=== PATIENT | female | born 1995 | race Caucasian/White ===

== ENCOUNTER 2017-07-02 10:45 | Inpatient (IN) | payer BC, OTHER ==
[~2017-07-02] VITALS: Ht 160 cm; Wt 60.3 kg
--- NOTE | 2017-07-08 01:30 | NUR ---
INTAKE ASSESSMENT PT ASSESSED IN INTAKE,PT IS A/O X 3,AMBULATES WITH A STEADY GAIT,V/S ARE STABLE.NO CO PAIN OR S/S OF ACUTE DISTRESS NOTED.PT IS IN A STABLE CONDITION TO PROCEED TO THE [facility].
[2017-07-08] MEDS ORDERED: ONDANSETRON 4 MG/2 ML VIAL IM PRN (02:00)
[2017-07-08] MEDS ORDERED: IBUPROFEN 400 MG TABLET PO PRN (02:00)
[2017-07-08] MEDS ORDERED: MAG HYDROX/AL HYDROX/SIMETH 30 ML LIQUID UDC PO PRN (02:00)
[2017-07-08] MEDS ORDERED: DICYCLOMINE HCL 20 MG TABLET PO PRN (02:00)
[2017-07-08] MEDS ORDERED: MIRALAX 17 GM POWD.PACK PO PRN (02:00)
[2017-07-08] MEDS ORDERED: ONDANSETRON ODT 4 MG TAB.RAPDIS SL PRN (02:00)
[2017-07-08] MEDS ORDERED: LOPERAMIDE HCL 2 MG CAPSULE PO PRN ×2 (02:00)
[2017-07-08] MEDS ORDERED: CLONIDINE HCL 0.1 MG TABLET PO PRN (02:00)
[2017-07-08] MEDS ORDERED: LORAZEPAM 1 MG TABLET PO PRN ×2 (02:00)
[2017-07-08] MEDS ORDERED: ACETAMINOPHEN 325 MG TABLET PO PRN (02:00)
[2017-07-08] MEDS ORDERED: MAGNESIUM HYDROXIDE 30 ML LIQUID UDC PO PRN (02:00)
[2017-07-08] MEDS ORDERED: LORAZEPAM 2 MG/1 ML VIAL IM PRN (02:00)
[2017-07-08] MEDS ORDERED: diphenhydrAMINE 50 MG CAPSULE PO PRN (02:00)
[2017-07-08] MEDS ORDERED: HYDR-3026 PO (02:04)
[2017-07-08] MEDS ORDERED: DOXE10CA2 PO (02:04)
[2017-07-08] MEDS ORDERED: NORE1PAT7 TD (02:04)
[2017-07-08] MEDS ORDERED: MELA3TAB PO (02:04)
[2017-07-08] MEDS ORDERED: NEOM14CR4 TP (02:04)
[2017-07-08] MEDS ORDERED: VITS42.53 TP (02:04)
[2017-07-08] MEDS ORDERED: BUPR-51 PO (02:04)
[2017-07-08 02:30] LABS: *URINE HCG, QUAL NEGATIVE (NEGATIVE)
[2017-07-08 02:36] LABS: *AMPHETAMINE, URINE POSITIVE (NEGATIVE); *BARBITURATE, URINE NEGATIVE (NEGATIVE); *CANNABINOID, URINE POSITIVE (NEGATIVE); *COCCAINE, URINE POSITIVE (NEGATIVE); *OPIATE, URINE NEGATIVE (NEGATIVE); *PHENCYCLIDINE SCREEN,URINE NEGATIVE (NEGATIVE)
--- NOTE | 2017-07-08 03:00 | NUR ---
ADMISSION NOTE HT=5 FEET,3 INCHES. WT= 133 POUNDS. B/P=98/57,T=97.4,P=74,R=16,02 SAT=97%. CIWA=4. Admitting 21 y/o female to [facility] for Benzo ( Xanax) dependency.Pt also reports using Meth,cocaine and marijuana.Pt started taking Xanax for anxiety disorder when she was 19 years old.Pt has a PMH of anxiety,depression,suicide attempt x 1 by overdosing on medications and seizures due to benzo withdrawals.Pt reports having a seizure 2 months ago.Placed on fall and seizure precautions.Pt reports having sinus surgery and has hx of head injury requiring sutures.Pt denies having any suicidal thoughts at this time.Pt is A/O X 3;she is allergic to Sulfa,eugene and mangoes.Placed on a regular diet and full code status.Skin is intact,warm and dry to touch.Pt has a superficial scratch on her chest and an old healing scab on her left knee.Respirations are even and non labored;abdomen is soft with bowel sounds present x 4.No c/o N/V/D noted.Pt oriented to room and unit,care plan and safety checks initiated.Educated on HEP C,SMOKING CESSATION,FALL RISK,SEIZURE PRECAUTIONS AND SUBSTANCE ABUSE.All safety measures in place per hospital policy,call light within reach.MD notified of admission.Pt's PCP is Dr.Tobie Bailey.Pt lives in [place], [place] with her parents. DRUG USE HX 1) XANAX-PT HAS BEEN TAKING 14 MGS OF XANAX SINCE THE AGE OF 19 YEARS. LAST TAKEN ON 07/06/17. 2) METH- PT STARTED USING METH 2 MONTHS AGO. LAST USED ON 07/07/17 AMT USED- 20 DOLLARS WORTH. 3) COCAINE- PT USES COCAINE EVERY OTHER DAY. LAST USED ON 07/06/17 QUANTITY-PT IS UNABLE TOP STATE. 4) MARIJUANA-PT HAS BEEN SMOKING 3 GRAMS OF MARIJUANA DAILY SINCE SHE WAS 17 YEARS OLD. LAST USED-07/06/17. DETOX HX PT HAS BEEN TO [facility] X 2. LAST TIME WAS FROM APRIL 2017 TO MAY 2017,WHERE SHE STAYED FOR 30 DAYS. SHE WAS SOBER FOR 20 DAYS AFTER DISCHARGE THEN RELAPSED. HER LONGEST SOBER PERIOD WAS FOR 50 DAYS FROM APRIL 2017 TO MAY 2017.
[2017-07-08 03:31] LABS: ALANINE AMINOTRANSFERASE 21 U/L (14-59); ALKALINE PHOSPHATASE 60 U/L (50-136); AMYLASE 25 U/L (25-115); ASPARTATE AMINOTRANSFERASE 10 U/L (15-37); BILIRUBIN,TOTAL 0.3 mg/dL (0.2-1.0); CARBON DIOXIDE 32 mmol/L (21-32); CHLORIDE 100 mmol/L (98-107); GLUCOSE 101 mg/dL (74-106); LIPASE 84 U/L (73-393); POTASSIUM 3.4 mmol/L (3.5-5.1); TOTAL PROTEIN, SERUM 8.1 g/dL (6.4-8.2); UREA NITROGEN, BLOOD 9 mg/dL (7-18)
[2017-07-08 03:40] LABS: THYROID STIMULATING HORMONE 1.323 mIU/mL (0.358-3.740)
[2017-07-08 03:55] LABS: ETHANOL < 3 MG/DL (0-0)
[2017-07-08 04:00] VITALS: BP 91/49
[2017-07-08] MEDS ORDERED: CLON0.1T PO (04:44)
[2017-07-08 04:53] LABS: BASOPHILS # (AUTO) 0.1 K/uL (0.0-8.0); EOSINOPHILS # (AUTO) 0.3 K/uL (0.0-0.7); EOSINOPHILS % (AUTO) 4.3 % (0.0-7.0); HEMATOCRIT 43.3 % (37-47); HEMOGLOBIN 14.9 G/DL (12.0-16.0); LYMPHOCYTES # (AUTO) 2.5 K/UL (0.8-4.8); MEAN CORPUSCULAR HEMOGLOBIN 30.8 UUG (27.0-31.0); MEAN CORPUSCULAR HGB CONC 34 g/dL (32.0-37.0); MEAN CORPUSCULAR VOLUME 89.8 FL (81.0-99.0); MONOCYTES # (AUTO) 0.5 K/UL (0.1-1.30); MONOCYTES % (AUTO) 8.8 % (0-11); NEUTROPHILS # (AUTO) 2.7 K/UL (1.8-8.9); NEUTROPHILS % (AUTO) 45.9 % (31.5-64.5); PLATELET COUNT (AUTO) 303 K/UL (150-450); RED BLOOD CELL COUNT(AUTO) 4.82 MIL/UL (4.2-5.4); WHITE BLOOD COUNT (AUTO) 6.1 K/UL (4.0-11.2)
--- NOTE | 2017-07-08 06:45 | NUR ---
END OF SHIFT Pt is 21 y/o [facility].Pt also reports using Meth,cocaine and marijuana.Pt has a PMH of anxiety,depression,suicide attempt x 1 by overdosing on medications and seizures due to benzo withdrawals.Pt reports having a seizure 2 months ago.Placed on fall and seizure precautions.Pt reports having sinus surgery and has hx of head injury requiring sutures.Pt denies having any suicidal thoughts at this time.Pt is A/O X 3;she is allergic to Sulfa,eugene and mangoes.Last CIWA=4.Pt was awake till early in the morning;slept 2-3 hrs,fluid intake was 250 mls,voided x 2,b/m x 1.All safety measures in place per hospital policy, call light with in reach,no c/o pain or s/s of acute distress noted, will continue to monitor.
[2017-07-08] MEDS ORDERED: DICYCLOMINE HCL 10 MG CAPSULE PO PRN (07:30)
--- NOTE | 2017-07-08 07:36 | NUR ---
START OF SHIFT Pt is a 21 yr old female, A&Ox4. Pt was admitted on 07/08/17 for Benzo Dependence and is on PRN for s/s of w/d. Received report from [facility] shift lead nurse. Pt is full code, regular diet and allergies to Sulfa, [place] and eugene. Pt has hx of seizures d/t withdrawal, Anxiety and Depression. No PRN's were given during the night. Last CIWA score was 4 at 0400. Pt is currently in bed resting with respirations even and unlabored. No acute distress noted. Skin is intact, warm and dry to touch. No SI/HI noted. Pt denies any n/v. Safety precautions observed. Call light is within reach. Will continue to monitor.
[2017-07-08 08:00] VITALS: BP 92/55
[2017-07-08] MEDS: MULTIVITAMINS,THERAPEUTIC TABLET PO SCH (09:00)
[2017-07-08] MEDS ORDERED: POTASSIUM CHLORIDE 20 MEQ TAB.PRT.SR PO ONE (10:00)
--- NOTE | 2017-07-08 10:31 | NUR ---
PRN GIVEN Pt was c/o anxiety and c/o headache 02/16. Fine tremors were seen. CIWA score was 8. Ativan 1mg PO PRN and Motrin 400mg PO PRN was given as ordered. Medication was sophy well. Encouraged increase fluid intake. Will continue to monitor.
[2017-07-08] MEDS ORDERED: DIAZEPAM 10 MG TABLET PO PRN ×2 (11:30)
[2017-07-08] MEDS ORDERED: DIAZEPAM 5 MG TABLET PO PRN (11:30)
--- NOTE | 2017-07-08 11:31 | NUR ---
PRN RE-ASSESSMENT Ativan 1mg PO PRN and Motrin 400mg PO PRN was effective. CIWA score was 5 at 1130. Encouraged increase fluid intake. Will continue to monitor.
[2017-07-08 12:00] VITALS: BP 100/70
[2017-07-08] MEDS ORDERED: DIAZEPAM 10 MG TABLET PO SCH ×3 (13:00→21:00)
--- NOTE | 2017-07-08 13:45 | NUR ---
Activity Group Note: Client attended activity group. She did not participate in "Bhupinder" activity, stating, "I'll just watch." She did participate in "Sequence" activity. Intervention goal was to increase task focus and leisure skills. Client's mood appeared depressed with flat affect at the beginning of group, but transitioned to more euthymic mood with congruent affect. Client had a coherent and goal-directed thought process as she was able to understand and complete the task. She stated, "I'm glad I decided to play this game today...It's always good to get out of your room." Client benefits from leisure activities and social interaction with peers. wire worker will continue to encourage participation.
[2017-07-08 16:00] VITALS: BP 103/62
--- NOTE | 2017-07-08 17:03 | NUR ---
PRN GIVEN Pt c/o increase anxiety. Clonidine 0.1mg PO PRN was given as ordered. Medication sophy well. Encouraged increase fluid intake. Will continue to monitor.
[2017-07-08] MEDS ORDERED: DOXEPIN 10 MG CAPSULE PO PRN (17:45)
--- NOTE | 2017-07-08 18:03 | NUR ---
PRN RE-ASSESSMENT Clonidine PRN was effective. Pt continues to c/o anxiety but is able to cope with anxiety level. Encouraged increase fluid intake. Will continue to monitor.
--- NOTE | 2017-07-08 18:53 | NUR ---
END OF SHIFT Pt is a 21 yr old female, A&Ox4. Pt was admitted on 07/08/17 for Benzo Dependence and started on 5 day Valium taper as ordered. Pt has been cooperative with plan of care and medication regimen. Pt attended group sessions during the day. Pt received Motrin and Ativan PRN during the day for s/s of w/d. Medication was effective. Pt also received Clonidine PRN for anxiety. Medication was effective. Last CIWA score was 9 at 1600. Pt continue to c/o anxiety but has been able to cope with anxiety level. Skin is intact, warm and dry to touch. Fine tremors are seen. Pt denies any n/v at this time. No SI/HI noted. Encouraged increase fluid intake. Safety precautions observed. Call light is within reach.
--- NOTE | 2017-07-08 19:45 | NUR ---
START OF SHIFT Received report from day shift nurse. Pt is in her room watching TV. She is a 21 yo female admitted to [facility] today for BZD dependence. She is A&O and ambulatory. Allergic to sulfa, tate, and eugene. Pt is full code status and on a regular diet. PMH of depression, anxiety, withdrawal related seizure x1, sinus surgery, and h/o head injury. On admission she reported using xanax 14mg per day, meth $20.00 per day, cocaine unknown amount, and marijuana. Pt started a 5 day valium taper today. Pt reports mild anxiety and states "I feel jittery". She denies SI/HI. Fall and seizure precautions in place. Bed is down with call light in reach.
[2017-07-08 20:00] VITALS: BP 99/51
[2017-07-08] MEDS ORDERED: GABAPENTIN 300 MG CAPSULE PO SCH (21:00)
[2017-07-08] MEDS: MELATONIN 3 MG PO SCH (21:50)
--- NOTE | 2017-07-08 21:50 | NUR ---
Nursing Note Pt's B/P 99/51 and HR 88. MD Contacted. Lizzie to administer all 2100 medications per .
[2017-07-08] MEDS: OXCARBAZEPINE 150 MG TABLET PO SCH (21:51)
[2017-07-09] VITALS: BP 97/53
--- NOTE | 2017-07-09 | NUR ---
0000 CIWA deferred CIWA ordered Q4HWA. Pt is lying in bed resting with eyes closed. Respirations even and unlabored. Vital signs obtained. Safety measures in place.
[2017-07-09 04:00] VITALS: BP 84/45
--- NOTE | 2017-07-09 04:00 | NUR ---
0400 CIWA deferred CIWA ordered Q4HWA. Pt is lying in bed resting with eyes closed. Vital signs obtained. Safety measures in place.
[2017-07-09 07:06] LABS: HEPATITIS B SURFACE AG Negative (Negative)
--- NOTE | 2017-07-09 07:18 | NUR ---
END OF SHIFT Report provided to day shift nurse. Pt is lying in bed resting. She is a 21 yo female admitted to [facility] today for BZD dependence. She is A&O and ambulatory. Allergic to sulfa, tate, and eugene. Pt is full code status and on a regular diet. PMH of depression, anxiety, withdrawal related seizure x1, sinus surgery, and h/o head injury. On admission she reported using xanax 14mg per day, meth $20.00 per day, cocaine unknown amount, and marijuana. Pt started a 5 day valium taper on 07/08. No PRN medications administered. Pt was hypotensive while sleeping at 0400 vitals. She is easily arousable and asymptomatic. Last CIWA was 3. She drank 838mL and slept for 8 hours. Fall and seizure precautions in place. Bed is down with call light in reach.
--- NOTE | 2017-07-09 07:19 | NUR ---
Start of Shift Note: Received patient in her room. Alert and verbally responsive. Oriented x 4. Able to make her needs known. Respirations even and unlabored. No SOB noted. Skin warm and dry to touch. Abdomen soft and non-distended. BS (+) in all 4 quadrants. No complains of N/V/D or constipation noted. No abdominal discomfort noted. Bladder non-distended. No complains of dysuria noted. Voids independently. Ambulatory ad cally with steady gait. Patient is a 21 year old female admitted for BZO/meth/cocaine dependence who was placed on a 5-day Valium taper as ordered. No adverse reactions noted. Has past medical hx of depression, anxiety, seizures due to withdrawal, sinus surgery, head injury. Prior to admission, patient was using 14 mg of Xanax, $20.00 worth of meth, unknown amount of cocaine and 3 grams of marijuana. Educated patient on her current plan of care for the day and her medication regimen. Encouraged oral fluid intake and encouraged group participation to learn new skills to prevent relapse. Will continue to monitor.
[2017-07-09 08:00] VITALS: BP 98/59
[2017-07-09] MEDS: DIAZEPAM 10 MG TABLET PO SCH ×3 (08:15→20:54)
[2017-07-09] MEDS: MULTIVITAMINS,THERAPEUTIC TABLET PO SCH (08:15)
[2017-07-09] MEDS: buPROPion XL 150 MG TAB.SR.24H PO SCH (08:15)
[2017-07-09] MEDS: OXCARBAZEPINE 150 MG TABLET PO SCH (08:15)
--- NOTE | 2017-07-09 08:25 | NUR ---
TB test not administered: Patient refused TB test at this time. Educated patient on the risk, benefits and indications but patient still refused. Per patient, she just had it done and was negative. Notified MD. No s.s of cough, congestion or runny nose noted.
[2017-07-09] MEDS ORDERED: PATIENT MAY USE OWN MED- MD OK TOP SCH (09:00)
[2017-07-09] MEDS ORDERED: TUBERCULIN,PURIF.PROT.DERIV. 5 TU/0.1 ML TEST ID ONE (09:00)
[2017-07-09 12:00] VITALS: BP 105/60
[2017-07-09] MEDS ORDERED: DIAZEPAM 10 MG TABLET PO ONE (12:00)
--- NOTE | 2017-07-09 12:30 | NUR ---
OT Valium 10 mg PO given: One time Valium 10 mg PO given to the patient per MD Henderson for CIWA 5. Patient tolerated well.
[2017-07-09 16:00] VITALS: BP 105/51
[2017-07-09] MEDS: HYDROXYZINE PAMOATE 25 MG CAPSULE PO PRN (16:34)
--- NOTE | 2017-07-09 16:34 | NUR ---
Vistaril 50 mg PO given: Patient verbalized feeling anxious due to group. Encouraged patient to verbalize her feelings and concerns with no help. Medicated patient with Vistaril 50 mg Po as ordered. Will monitor for effectiveness.
--- NOTE | 2017-07-09 17:34 | NUR ---
Re-assessment: Per patient, PRN Vistaril was effective in reducing patient's anxiety.
--- NOTE | 2017-07-09 18:53 | NUR ---
End of Shift Notes: Patient continues to be on 5-day Valium taper as ordered. No adverse reactions noted. Patient is tolerating taper well. VS monitored closely. No significant abnormalities noted. Withdrawal symptoms were closely monitored. Initial CIWA 6, patient presented with anxiety, tremors, myalgia, fatigue, and sweats. Last CIWA 3. Per patient, Valium has been effective in reducing patients withdrawal symptoms. OT Valium 10 mg PO given at 1230 per MD. PRN Vistaril 50 mg PO was given at 1634 for complains of anxiety, with help after 1 hour. Patient is compliant with care and treatment. Requires encouragement to participate in group and activities. All needs met and attended. Will continue to monitor closely.
--- NOTE | 2017-07-09 18:53 | NUR ---
START OF SHIFT NOTE: Patient is a 21 year old female admitted to [facility] on 07/08/2017 for Benzodiazepines, Methamphetamine, Cocaine, and Marijuana dependence, continue 5 Day Valium Taper. Patient tolerated well without ASE. Patient remains compliant with treatment, medications, and diet regime. Patient reports Allergy to Sulfa, [place], [place]. Patient is on Full Code Regular Diet, Fall and Seizures Precautions. Patient reports PMH: Anxiety, Depression, History of Seizures r/t withdrawal x1, History of Head injury requiring sutures. Patient reports Substance use: "Xanax PO 14 mg every day during last 30 days. Last used 14 mg on 07/06/2017; Methamphetamine for $20 every day during last 30 days. Last used unknown amount on 07/07/2017. Cocaine snort unknown amount every day during last 30 days. Last used unknown amount on 07/06/2017. Marijuana smoke 3 grams every day during last 30 days. Last used 3 grams on 07/06/2017". Patient reports recent treatment History in "[facility] x2". Upon endorsement patient is in her room alert and oriented x4, with stable gait. Speech is soft and clear. CIWA 5. VSWNL. Respirations unlabored and even. Lungs Sounds are clear thoroughly. Abdomen is soft, non-tender. Bowels Sounds presents in all x4 quadrants. Skin is warm and dry. Patient has Superficial scratches on chest/neck, and dry scab on Left knee. Encouraged to fluids intake as tolerated. Encouraged to attending groups activities. All needs met. Safety measures in place: Call light within reach, bed locked, and in lowest position, padded bed rails up bilaterally. Patient endorsed by day shift nurse, report received.
[2017-07-09 20:00] VITALS: BP 99/59
[2017-07-09] MEDS: MELATONIN 3 MG PO SCH (20:53)
[2017-07-09] MEDS: OXCARBAZEPINE 300 MG TABLET PO SCH (20:54)
[2017-07-10] VITALS: BP 97/54
--- NOTE | 2017-07-10 04:00 | NUR ---
VS REFUSED AND COWS/CIWA DEFERRED Patient refused to be woken up for 0400 VS. COWS/CIWA deferred d/t patient sleeping to assess while patient is awake. Safety measures on place by hospital policy: Call light within reach, bed in lowest position and locked, side rails up x2. Will continue to monitor closely.
--- NOTE | 2017-07-10 06:53 | NUR ---
END OF SHIFT NOTE: Patient is a 21 year old female admitted to [facility] on 07/08/2017 for Benzodiazepines, Methamphetamine, Cocaine, and Marijuana dependence. Patient continue 5 Day Valium Taper which tolerated well without ASE. Patient remains compliant with treatment, medications, and diet regime. Patient reports Allergy to Sulfa, [place], [place]. Patient is on Full Code, Regular Diet, Fall and Seizures Precautions. PMH: Anxiety, Depression, History of Seizures r/t withdrawal x1, History of Head injury requiring sutures. Patient reports Substance use: "Xanax PO 14 mg every day during last 30 days. Last used 14 mg on 07/06/2017; Methamphetamine for $20 every day during last 30 days. Last used unknown amount on 07/07/2017. Cocaine snort unknown amount every day during last 30 days. Last used unknown amount on 07/06/2017. Marijuana smoke 3 grams every day during last 30 days. Last used 3 grams on 07/06/2017". Patient refused to be woken up for 0400 VS. COWS/CIWA deferred d/t patient sleeping to assess while patient is awake. Last CIWA 3 @0000. COWS/CIWA taken when patient's awake during night. Last VS @0000: T: 97.9, BP: 97/54, HR: 87, RR:16, RA O2Sat: 98%, pain level: "0/10". Patient denies SI/HI. Respirations unlabored and even. Skin is intact, warm and dry to touch. No PRN Medications administrated last cloth calender. Patient slept 7 hours, intake 2,070 ml, voided x3. Encouraged fluids intake as tolerated. Encouraged to attend groups activities. All needs met. Safety measures on place. Call light within reach, bed in lowest position and locked, padded rails up bilaterally. Patient endorsed to day shift nurse. Report given.
[2017-07-10 08:00] VITALS: BP 95/60
--- NOTE | 2017-07-10 08:23 | NUR ---
START OF SHIFT: RECEIVED PT A/O X 4. SHE C/O ANXIETY,RESTLESSNESS AND STATES SHE STILL FEELS A BIT SHAKY INSIDE. CIWA 7 . VALIUM TAPER IN PROGRESS TO MANAGE S/S OF W/D. ENCOURAGED INCREASED FLUIDS AND GROUP ATTENDANCE TO PROMOTE WELLNESS, WILL CONTINUE TO MONITOR AND MANAGE S/S OF W/D.
[2017-07-10] MEDS: OXCARBAZEPINE 300 MG TABLET PO SCH ×2 (08:28→20:51)
[2017-07-10] MEDS: buPROPion XL 150 MG TAB.SR.24H PO SCH (08:28)
[2017-07-10] MEDS: MULTIVITAMINS,THERAPEUTIC TABLET PO SCH (08:28)
[2017-07-10] MEDS ORDERED: DIAZEPAM 5 MG TABLET PO SCH (09:00)
[2017-07-10 12:00] VITALS: BP 104/60
[2017-07-10] MEDS: DIAZEPAM 5 MG TABLET PO SCH ×2 (12:36→17:00)
--- NOTE | 2017-07-10 14:48 | NUR ---
Therapist prompted client about group times. Client stated she hasn't been feeling well today so she may not attend groups.
[2017-07-10 16:00] VITALS: BP 104/60
--- NOTE | 2017-07-10 18:52 | NUR ---
END OF SHIFT: PT CONTINUES ON VALIUM TAPER . LAST CIWA 4. NO PRNS GIVEN. SHE SLEPT PART OF THE AFTERNOON. SHE DID NOT ATTEND GROUPS ENCOURAGED. SHE WAS COMPLIANT WITH INCREASED FLUIDS. WILL PASS SHIFT REPORT TO ONCOMING HEDGE FUND MANAGER.
--- NOTE | 2017-07-10 19:15 | NUR ---
START OF SHIFT Received 21 year old female patient admitted on 07/08/17 for Xanax, Meth, Cocaine, and Marijuana. Pt is full code with allergy to sulfa, eugene and tate. She reports a PMHx of depression, anxiety, seizure related to withdrawal x1, sinus surgery, and history of head injury. She reports using Xanax 14 mg daily for 30 days. Last dose was 14 mg on 07/06/17. Methamphetamine $20 worth for 30 days. Last dose was 07/07/17. Cocaine of unknown amount for 30 days. Last dose was 07/06/17. Marijuana 3 grams daily for 30 days. Last dose was 3 grams on 07/06/17. Pt is receiving a 5 day Valium taper started on 07/08/17 and is tolerating well. Per endorsement, pt did not receive or request PRN medications. Pt is alert and oriented x4, breathing is even and unlabored. Safety meausres in place. Will monitor.
[2017-07-10 20:00] VITALS: BP 115/59
[2017-07-10] MEDS: MELATONIN 3 MG PO SCH (20:51)
[2017-07-10] MEDS ORDERED: DIAZEPAM 10 MG TABLET PO SCH (21:00)
--- NOTE | 2017-07-11 | NUR ---
VITALS REFUSED, CIWA DEFERRED Pt refused 0000 vitals. CIWA deferred d/t pt is lying in bed with eyes closed noted to be asleep. Breathing even and unlabored. Safety measures in place. Will continue to monitor.
--- NOTE | 2017-07-11 04:00 | NUR ---
VITALS REFUSED, CIWA DEFERRED Pt refused 0400 vitals. CIWA deferred d/t pt is lying in bed with eyes closed noted to be asleep. Breathing even and unlabored. Safety measures in place. Will continue to monitor.
--- NOTE | 2017-07-11 07:01 | NUR ---
END OF SHIFT Pt is a 21 year old female patient admitted on 07/08/17 for Xanax, Meth, Cocaine, and Marijuana. Pt is full code with allergy to sulfa, eugene and [place]et. She continues on a 5 day Valium taper started on 07/08/17 and is tolerating well. She did not receive or request PRN medications. She slept a total of 9hrs, Intake:1355mL, Void:x2 , BM:x1, CIWA:3. Pt remains alert and oriented x4, breathing is even and unlabored. Safety meausres in place. Endorsed to AM shift.
--- NOTE | 2017-07-11 07:02 | NUR ---
Start of Shift Note: Received patient in her room. Alert and verbally responsive. Oriented x 4. Able to make her needs known. Respirations even and unlabored. No SOB noted. Skin warm and dry to touch. Abdomen soft and non-distended. BS (+) in all 4 quadrants. No complains of N/V/D or constipation noted. No abdominal discomfort noted. Bladder non-distended. No complains of dysuria noted. Voids independently. Ambulatory ad cally with steady gait. Patient is a 21 year old female admitted for BZO/meth/cocaine dependence who was placed on a modified 5-day Valium taper as ordered. No adverse reactions noted. Has past medical hx of depression, anxiety, seizures due to withdrawal, sinus surgery, head injury. Prior to admission, patient was using 14 mg of Xanax, $20.00 worth of meth, unknown amount of cocaine and 3 grams of marijuana. Educated patient on her current plan of care for the day and her medication regimen. Encouraged oral fluid intake and encouraged group participation to learn new skills to prevent relapse. Will continue to monitor.
[2017-07-11 08:00] VITALS: BP 99/60
[2017-07-11] MEDS: buPROPion XL 150 MG TAB.SR.24H PO SCH (08:34)
[2017-07-11] MEDS: MULTIVITAMINS,THERAPEUTIC TABLET PO SCH (08:34)
[2017-07-11] MEDS: OXCARBAZEPINE 300 MG TABLET PO SCH ×2 (08:34→21:58)
[2017-07-11] MEDS ORDERED: DIAZEPAM 5 MG TABLET PO SCH (09:00)
[2017-07-11 12:00] VITALS: BP 108/68
[2017-07-11] MEDS ORDERED: BACLOFEN 20 MG TABLET PO PRN (13:15)
[2017-07-11] MEDS ORDERED: ASPIRIN/ACETAMINOPHEN/CAFFEINE TABLET PO PRN (13:15)
[2017-07-11] MEDS: DIAZEPAM 5 MG TABLET PO SCH ×3 (13:38→21:58)
--- NOTE | 2017-07-11 13:39 | NUR ---
Taper changed: MD Henderson modified patient's taper today. Increase Valium 5 mg doses from TID to QID. Patient education provided.
[2017-07-11 16:00] VITALS: BP 129/73
--- NOTE | 2017-07-11 18:51 | NUR ---
End of Shift Notes: Patient continues to be on 5-day Valium taper as ordered. No adverse reactions noted. Patient is tolerating taper well. VS monitored closely. No significant abnormalities noted. Withdrawal symptoms were closely monitored. Initial CIWA 6, patient presented with anxiety, tremors, fatigue, and sweats. Last CIWA 3. MD Henderson modified patients Valium taper today. Per patient, Valium has been effective in reducing patients withdrawal symptoms. Patient is compliant with care and treatment. Requires encouragement to participate in group and activities. All needs met and attended. Will continue to monitor closely.
[2017-07-11 20:00] VITALS: BP 125/68
--- NOTE | 2017-07-11 20:00 | NUR ---
START OF SHIFT Received report form day shift nurse. Pt attended a group meeting and returned to her room after. She is a 21 yo female admitted to [facility] on 07/08 for BZD dependence. She is A&O x4 and ambulatory. Allergic to sulfa, tate, and eugene. Pt is full code status and on a regular diet. Pt has a PMH of seizure r/t withdrawal x1, depression, anxiety, and h/o head injury. On admission pt reports using xanax 14mg per day, methamphetamine $20 per day, cocaine unknown amounts, and marijuana. Pt started a 5 day Valium taper on 07/08. She reports anxiety and is observed with moderately dilated pupils. Taper due tonight. Fall and seizure precautions in place. Bed is down with call light in reach.
[2017-07-11] MEDS: MELATONIN 3 MG PO SCH (21:58)
[2017-07-12] VITALS: BP 120/70
--- NOTE | 2017-07-12 04:00 | NUR ---
0400 Vitals refused/CIWA deferred Pt refused to be woken for 0400 vitals. She is lying in bed resting with eyes closed. Respirations even and unlabored. CIWA ordered Q4HWA. Safety measures in place.
--- NOTE | 2017-07-12 07:15 | NUR ---
END OF SHIFT Report provided to day shift nurse. Pt is lying in bed resting. She is a 21 yo female admitted to [facility] on 07/08 for BZD dependence. She is A&O x4 and ambulatory. Allergic to sulfa, tate, and eugene. Pt is full code status and on a regular diet. Pt has a PMH of seizure r/t withdrawal x1, depression, anxiety, and h/o head injury. On admission pt reports using xanax 14mg per day, methamphetamine $20 per day, cocaine unknown amounts, and marijuana. 5 day Valium taper was started on 07/08. No PRN medications administered. Last CIWA was 2. She drank 1844mL and slept for 6 hours. Fall and seizure precautions in place. Bed is down with call light in reach.
[2017-07-12 08:00] VITALS: BP 103/57
[2017-07-12] MEDS: OXCARBAZEPINE 300 MG TABLET PO SCH ×2 (08:28→20:37)
[2017-07-12] MEDS: DIAZEPAM 5 MG TABLET PO SCH ×3 (08:28→20:37)
[2017-07-12] MEDS: MULTIVITAMINS,THERAPEUTIC TABLET PO SCH (08:28)
[2017-07-12] MEDS: buPROPion XL 150 MG TAB.SR.24H PO SCH (08:28)
[2017-07-12] MEDS ORDERED: DIAZEPAM 5 MG TABLET PO SCH (09:00)
[2017-07-12 12:00] VITALS: BP 125/72
--- NOTE | 2017-07-12 14:13 | NUR ---
OT Propranolol PO given: OT order for Propranolol given as ordered per MD for anxiety. BP stable. Will continue to monitor.
[2017-07-12] MEDS ORDERED: PROPRANOLOL HCL 20 MG TABLET PO ONE (15:00)
[2017-07-12 16:00] VITALS: BP 128/65
--- NOTE | 2017-07-12 17:29 | NUR ---
Transfer of care: Care transferred to receiving nurse. All pertinent information explained and discussed.
--- NOTE | 2017-07-12 18:13 | NUR ---
End of Shift Notes Patient continues to be on a modified 5-day Valium taper as ordered. No adverse reactions noted. Patient is tolerating taper well. VS monitored closely. No significant abnormalities noted. Withdrawal symptoms were closely monitored. Per patient, Valium has been effective in reducing patients withdrawal symptoms. Patient is compliant with care and treatment. Requires encouragement to participate in group and activities. All needs met and attended. No distress noted at this time.
--- NOTE | 2017-07-12 18:50 | NUR ---
PRN Pt with 3 vomit episodes of food particles. Zofran IM prn per MD order given and tolerated well.
--- NOTE | 2017-07-12 19:15 | NUR ---
PRN EVAL Pt states medication effective and vomitting ceased.
[2017-07-12 20:00] VITALS: BP 115/67
--- NOTE | 2017-07-12 20:00 | NUR ---
START OF SHIFT Received report form day shift nurse. Pt attended a group meeting and returned to her room after. She is a 21 yo female admitted to [facility] on 07/08 for BZD dependence. She is A&O x4 and ambulatory. Allergic to sulfa, tate, and eugene. Pt is full code status and on a regular diet. Pt has a PMH of seizure r/t withdrawal x1, depression, anxiety, and h/o head injury. On admission pt reports using xanax 14mg per day, methamphetamine $20 per day, cocaine unknown amounts, and marijuana. 5 day Valium taper started on 07/08. She reports mild anxiety, not sleeping well at night, and has fine tremors. Additional PRN sleep medications noted. Taper due tonight. Fall and seizure precautions in place. Bed is down with call light in reach.
[2017-07-12] MEDS: MELATONIN 3 MG PO SCH (20:37)
[2017-07-12] MEDS: PROPRANOLOL HCL 20 MG TABLET PO SCH (20:37)
[2017-07-12] MEDS: IBUPROFEN 600 MG TABLET PO PRN (20:37)
--- NOTE | 2017-07-12 20:38 | NUR ---
PRN Motrin Pt c/o right lower quadrant tooth ache. PRN Motrin administered.
--- NOTE | 2017-07-12 21:38 | NUR ---
PRN Motrin reassessment PRN Motrin effective. Pt reports tooth ache is relieved.
--- NOTE | 2017-07-12 22:49 | NUR ---
PRN Benadryl Pt reports inability to sleep. PRN Benadryl administered.
--- NOTE | 2017-07-12 23:49 | NUR ---
PRN Benadryl reassessment PRN Benadryl effective. Pt is lying in bed resting with eyes closed. Respirations even and unlabored. Safety measures in place.
[2017-07-13] VITALS: BP 93/46
--- NOTE | 2017-07-13 | NUR ---
0000 CIWA deferred CIWA ordered Q4HWA. Pt is lying in bed resting with eyes closed. Respirations even and unlabored. Vital signs obtained. Safety measures in place.
--- NOTE | 2017-07-13 07:02 | NUR ---
END OF SHIFT Report provided to day shift nurse. Pt is lying in bed resting. She is a 21 yo female admitted to [facility] on 07/08 for BZD dependence. She is A&O and ambulatory. Allergic to sulfa, tate, and eugene. Pt is full code status and on a regular diet. Pt has a PMH of seizure r/t withdrawal x1, depression, anxiety, and h/o head injury. On admission pt reports using xanax 14mg per day, methamphetamine $20 per day, cocaine unknown amounts, and marijuana. 5 day Valium taper started on 07/08. Pt is compliant with treatment. PRN Benadryl administered for sleep and PRN Motrin administered for tooth ache. Last CIWA was 3. She drank 500mL and slept for 7 hours. Fall and seizure precautions in place. Bed is down with call light in reach.
--- NOTE | 2017-07-13 07:29 | NUR ---
START OF SHIFT Pt 21 y/o female admitted for benzo dependency. Pt received in room on bed with eyes closed resting, but easily arousable to name. Perrla. Skin warm and dry to touch. Respirations even and unlabored. Bilateral hand tremors noted slightly. I twas reported that pt slept for 7 hours last night. Bed on lowest position with side rails x2 up for safety. Call light within reach. No distress noted at this time.
[2017-07-13] MEDS: OXCARBAZEPINE 300 MG TABLET PO SCH ×2 (08:17→21:13)
[2017-07-13] MEDS: MULTIVITAMINS,THERAPEUTIC TABLET PO SCH (08:17)
[2017-07-13] MEDS: PROPRANOLOL HCL 20 MG TABLET PO SCH ×2 (08:17→21:03)
[2017-07-13] MEDS: buPROPion XL 150 MG TAB.SR.24H PO SCH (08:17)
[2017-07-13 08:46] VITALS: BP 106/59
[2017-07-13] MEDS ORDERED: DIAZEPAM 5 MG TABLET PO SCH (09:00)
[2017-07-13 12:12] VITALS: BP 116/64
[2017-07-13 16:00] VITALS: BP 100/61
[2017-07-13] MEDS: IBUPROFEN 600 MG TABLET PO PRN (17:30)
--- NOTE | 2017-07-13 17:34 | NUR ---
PRN pt with c/o tootache 02/16. Motrin po prn per MD order given and tolerated well.
--- NOTE | 2017-07-13 18:34 | NUR ---
PRN EVAL Pt states tooth pain 2/10.
--- NOTE | 2017-07-13 18:49 | NUR ---
END OF SHIFT Pt 21 y/o female admitted for benzo dependency. Pt alert and oriented to name, place, and time. Perrla. Skin warm and dry to touch. Respirations even and unlabored. Bilateral hand tremors noted slightly. Pt observed mostly in dining room and patio throughout the day. Pt attended group activity. Pt was seen by MD today. Pt medication compliant and tolerated well. No ASE noted. Bed on lowest position with side rails x2 up for safety. Call light within reach. No distress noted at this time.
[2017-07-13] MEDS ORDERED: HYDR-3895 PO (19:12)
[2017-07-13] MEDS ORDERED: DIPH50CA37 PO (19:12)
[2017-07-13] MEDS ORDERED: BACL20TA PO (19:12)
[2017-07-13] MEDS ORDERED: DICY10CA21 PO (19:12)
[2017-07-13] MEDS ORDERED: OXCA300T4 PO (19:12)
[2017-07-13] MEDS ORDERED: PROP20TA22 PO (19:12)
[2017-07-13] MEDS ORDERED: Aspirin/Acetaminophen/Caffeine PO (19:12)
[2017-07-13] MEDS ORDERED: IBUP-1955 PO (19:12)
[2017-07-13 20:00] VITALS: BP 105/58
--- NOTE | 2017-07-13 20:00 | NUR ---
1999 Patient received awake, alert and just returning to her room # 303 from [facility] in recreation room. Gait is brisk and steady. Patient responds to nurse's greeting and introduction with a smile and, " Hi, I'm dong fine. I'm leaving tomorrow. I'm going to some place in [facility]. I looked the place up and it looks nice". Patient's color is pink and her skin is clean, warm, dry and intact. Patient is oriented to person, place, day, date, time and her personal situation. Patient states that she continues to eat her regular diet meal trays and take various fluids ad cally with no gastric issues. Patient denies any pain or other discomforts and she voices no requests for anything at this time. Vital signs are: 98.1-73-16 105/58, O2 Sat 99%, CIWA 2. Patient was admitted on 07/08/17 for: Xanax, Meth, Cocaine withdrawal and she has completed a 5-Day Valium medication taper at this time. Bed is locked and in lowest position, padded bed rails are up X 2 and call light on patient's bed. Fall/Seizure precautions continue.
[2017-07-13] MEDS: DICYCLOMINE HCL 20 MG TABLET PO SCH (21:02)
[2017-07-13] MEDS: MELATONIN 3 MG PO SCH (21:03)
--- NOTE | 2017-07-13 21:13 | NUR ---
PRN MEDICATION: Prn Sinequan 10 mg p.o. given per request for sleep medication.
[2017-07-13] MEDS: HYDROXYZINE PAMOATE 25 MG CAPSULE PO PRN (21:14)
--- NOTE | 2017-07-13 21:14 | NUR ---
PRN MEDICATION: Prn Vistaril 50 mg p.o. given per c/o anxiety.
--- NOTE | 2017-07-13 22:14 | NUR ---
REASSESSMENT PRN MEDICATIONS: Patient is downstairs on hospital patio for smoke break. Unable to reassess patient at this time.
--- NOTE | 2017-07-14 | NUR ---
Patient refused to be awakened for V/S, CIWA to be done at this time.
--- NOTE | 2017-07-14 04:00 | NUR ---
Patient refused to be awakened for V/S, CIWA to be done at this time.
--- NOTE | 2017-07-14 06:30 | NUR ---
0630 Patient slept a total of 8 hours and she had 3 voids and no stools. Total intake was 1,148 ml p.o. Prn medications given noted separately per floor protocol. V/SS afebrile, last CIWA 2 at 1999. Patient is presently sleeping comfortably in stable condition, with eyes closed and respirations even, unlabored at 12.
--- NOTE | 2017-07-14 08:00 | NUR ---
BEGINNING OF SHIFT Patient endorsement report received from supervisor aircraft cleaning nurse, all pertinent information discussed. patient is a 21 year old Female admitted on: 07/08/2017. with admitting Dx: BZO dependence. patient completed 5 day Valium taper and is scheduled to be discharged this morning, patient noted self motivated towards sobriety. patients skin is intact. per supervisor aircraft cleaning patient slept for 8 hours, and received PRN: Sinequan and Vistaril as ordered during supervisor aircraft cleaning, medications effective. . Patient received awake, alert and oriented x4, educated regarding plan of care for the day and medication regimen with good verbal understanding. safety measures in place. call light kept with in reach, will continue to monitor.
[2017-07-14 08:44] VITALS: BP 105/65
[2017-07-14] MEDS: DICYCLOMINE HCL 20 MG TABLET PO SCH (09:27)
[2017-07-14 09:28] VITALS: BP 105/65
[2017-07-14] MEDS: OXCARBAZEPINE 300 MG TABLET PO SCH (09:28)
[2017-07-14] MEDS: buPROPion XL 150 MG TAB.SR.24H PO SCH (09:28)
[2017-07-14] MEDS: MULTIVITAMINS,THERAPEUTIC TABLET PO SCH (09:28)
[2017-07-14] MEDS: PROPRANOLOL HCL 20 MG TABLET PO SCH (09:28)
--- NOTE | 2017-07-14 09:40 | NUR ---
DISCHARGE Patient discharged off the unit at 0940, prior to discharge patient was educated and provided with teaching regarding all discharge instructions, with good verbal understanding. Patient noted self motivated towards sobriety. Patients vital signs WNL. no s/sx of withdrawal noted, patient with last ciwa score of: 0. Safety measures in place, patient off the unit at 0940 in stable condition, patients prescriptions, discharge instructions, and teaching were placed in patients personal duffel bag.
== END 2017-07-14 09:40 | disposition other institution (70) | DRG 895 ==
LOC: SRC 07-08 00:41
PROVIDERS: ADMIT Internal Medicine; ATTEND Internal Medicine
PROC: HZ2ZZZZ Detoxification Services for Substance Abuse Treatment (ICD-10-PCS; principal; 2017-07-08)
PROC: HZ41ZZZ Group Counseling for Substance Abuse Treatment, Behavioral (ICD-10-PCS; principal; 2017-07-08)
PROC: HZ31ZZZ Individual Counseling for Substance Abuse Treatment, Behavioral (ICD-10-PCS; 2017-07-10)
DX: F13.232 Sedative, hypnotic or anxiolytic dependence with withdrawal with perceptual disturbance (principal); F33.2 Major depressive disorder, recurrent severe without psychotic features; F12.90 Cannabis use, unspecified, uncomplicated; F17.210 Nicotine dependence, cigarettes, uncomplicated; Z81.1 Family history of alcohol abuse and dependence; Z91.89 Other specified personal risk factors, not elsewhere classified; F15.23 Other stimulant dependence with withdrawal; Z81.3 Family history of other psychoactive substance abuse and dependence; Z82.49 Family history of ischemic heart disease and other diseases of the circulatory system; Z91.5 Personal history of self-harm; Z88.2 Allergy status to sulfonamides; F41.9 Anxiety disorder, unspecified; G47.00 Insomnia, unspecified; Z79.899 Other long term (current) drug therapy; F14.10 Cocaine abuse, uncomplicated; E87.6 Hypokalemia; G43.909 Migraine, unspecified, not intractable, without status migrainosus; G44.209 Tension-type headache, unspecified, not intractable
CPT/HCPCS: 36415; 70030-TC; 80307; 80324; 80346; 80349; 80353; 83690; 83735; 84443; 84703; 85025; 86592; 86705; 86803; 87340; 87806; A4663; G0480; J2405; Q0163